=== PATIENT | female | born 1995 | race Caucasian/White ===

== ENCOUNTER 2024-12-14 12:50 | Emergency (ER) | payer OTHER, SELFPAY ==
[2024-12-14] VITALS (8 sets, daily range): BP systolic 100–111; BP diastolic 60–80; BMI 19.4
--- NOTE | 2024-12-14 13:13 | ED.GENMED ---
History of Present Illness
General
Chief Complaint: Post Operative Problem(s)
Time Seen by Provider: 12/14/24 13:06
History of Present Illness
History of Present Illness:
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 Last week
she underwent skin grafting as a follow-up to the initial surgery, had been doing well up until today when she had a cough and subsequently began hemorrhaging from the mouth. Per EMS the patient was tachycardic and hypotensive with severe blood
loss. On arrival the patient has no further bleeding, she is not on anticoagulants
Review of Systems
Review of Systems
Allergies reviewed?: Yes
All Other Systems: ROS reviewed and negative except as documented in HPI and ROS
Phy Exam
Physical Exam
Physical Exam:
GEN: Well appearing, NAD, WDWN
HEENT: Oral mucosa moist, no scleral icterus. Evidence of recent bleeding to the mouth, large clot in the right upper maxillary region, no evidence for active bleeding. Patient has severe trismus at baseline
Cardiac: Regular rate
Lung: No respiratory distress, no tachypnea
MSK: No gross deformity or injuries
Skin: Good color, no pallor or jaundice, no rashes
Neuro: AO x3, moves all extremities freely
Psych: Calm, cooperative
Course
Orders/Labs/Results
Orders:
Orders
12/14/24 13:11
Tranexamic Acid 1000 mg/100 ml [Tranexamic Acid] 1,000 mg in 100 ml IV ONCE
12/14/24 13:22
Type+Screen Urgent
Complete Blood Count/With Diff Urgent
Comprehensive Metabolic Panel Urgent
12/14/24 13:53
Ondansetron Injectable [Zofran] 4 mg .ROUTE .[facility]
12/14/24 13:54
Ondansetron Injectable [Zofran] 4 mg IV NOW STA
12/14/24 14:08
ABO2 Urgent
BBK Wristband Number:
Associate notified that ABO2 has been ordered: [id number]
Date: 12/14/24
Time: 13:37
Project Specialist ID: [id number]
12/14/24 14:09
Lorazepam [Ativan] 0.5 mg IV NOW STA
12/14/24 15:24
0.9% Sodium Chloride 1000 ml [Nss] 1,000 ml IV BOLUS
12/14/24 15:29
Hemoglobin Urgent
Abnormal Lab Results
12/14/24 12/14/24
13:22 15:29
WBC 12.0 H 10^3/uL
(4.8-10.8)
RBC 3.81 L 10^6/uL
(4.20-5.40)
Hgb 11.0 L g/dL 9.3 L g/dL
(12.0-16.0) (12.0-16.0)
Hct 32.9 L %
(37.0-47.0)
Absolute Neuts (auto) 7.0 H 10^3/uL
(1.4-6.5)
Absolute Lymphs (auto) 4.1 H 10^3/uL
(1.2-3.4)
Absolute Monos (auto) 0.7 H 10^3/uL
(0.1-0.6)
Potassium 3.4 L mmol/L
(3.5-5.1)
Glucose 156 H mg/dl
(70-99)
Total Bilirubin 1.4 H mg/dl
(0.2-1.3)
AST 67 H U/L
(14-36)
ALT 55 H U/L
(0-35)
Total Protein 5.9 L g/dl
(6.3-8.2)
12/14/24 15:29
12/14/24 13:22
Vital Signs
Initial and Last Documented VS:
Initial Vital Signs
BP
110/63
12/14/24 12:56
Last Documented Vital Signs
Temp Pulse Resp BP Pulse Ox
97.6 F 76 14 110/80 97
12/14/24 12:57 12/14/24 17:37 12/14/24 17:37 12/14/24 17:00 12/14/24 17:15
MDM/Problems Addressed
MDM/Problems Addressed:
Patient was given IV tranexamic acid due to reports of massive hemorrhage, bleeding was controlled in the ED. I did remove the bulk of the clot from the mouth and saw no evidence for active bleeding. Initial hemoglobin stable, repeat hemoglobin 2
hours later down trended to 9.3 however this is in part delusional due to 1 L of normal saline being administered. Patient was observed for several hours in the ED with no further bleeding, I did discuss the case with oral maxillofacial surgery at
[facility] and they feel it is reasonable for the patient be discharged home however the patient is quite insistent that she is not willing to go home unless she is seen by a maxillofacial specialist. Given this we discussed the
case with the ED attending at [place] and they have excepted her as an ED to ED transfer for OMFS evaluation, remained stable in the ED
*Critical Care Note
Total Time (30-74mins, 75-104mins- exclusive of procedures): Not Applicable
ED Attending Note
-
Portions of this chart may have been created with voice recognition software.� Occasional wrong word or��sound alike� substitutions may have occurred due to the inherent limitations of voice recognition software.
Discharge Plan
Departure
Patient Disposition: Acute Care Hospital
Date of Disposition: 12/14/24
Time of Disposition: 16:04
Discharge Problem:
Surgical wound hemorrhage after dental procedure
Referrals:
Janes Silvestre DDS [Family Provider] -
Hospital Transfer
Other hospital: [facility]
I certify that the patient requires transfer: Yes
Discussed case with accepting physician: [facility]
Reason for transfer: higher level of care
Interventions
Interventions:
*Risk Screen - Suicide Last Done: 12/14/24 12:57
*General Assessment Last Done: 12/14/24 12:57
*Neglect/Abuse Screening Last Done: 12/14/24 12:57
ED- Fall Risk Assessment Last Done: 12/14/24 13:40
*ED COVID-19 Vaccine History Last Done: 12/14/24 13:23
ED-Skin Assessment Last Done: 12/14/24 13:40
Discharge Date and Time
Print Language: ICELANDIC
[2024-12-14 13:34] LABS: % Basophils 0.2 % (0-2); % Eosinophils 1.8 % (0-6); % Immature Granulocytes 0.3 % (0-0.5); % Lymphocytes 33.9 % (20.5-51.1); % Monocytes 5.5 % (1.7-9.3); % Neutrophils 58.3 % (42.2-75.2); Absolute Eosinophils 0.2 10^3/uL (0-0.7); Absolute Lymphocytes 4.1 10^3/uL (1.2-3.4); Absolute Monocytes 0.7 10^3/uL (0.1-0.6); Hematocrit 32.9 % (37.0-47.0); Mean Corp Hgb Conc. 33.4 g/dL (33.0-37.0); Mean Corpuscular Hgb 28.9 pg (27.0-31.0); Mean Corpuscular Volume 86.4 fL (81.0-99.0); Mean Platelet Volume 9.5 fL (7.4-10.4); Nucleated Red Blood Cells % 0 %; Platelet Count 249 10^3/uL (130-400); Red Blood Cell Count 3.81 10^6/uL (4.20-5.40); Red Cell Dist. Width 13.1 % (11.5-14.5)
[2024-12-14] MEDS: TRANEXAMIC ACID 100 IV (13:35)
[2024-12-14 13:52] LABS: ALT (SGPT) 55 U/L (0-35); AST (SGOT) 67 U/L (14-36); Albumin 3.8 g/dl (3.5-5.0); Alkaline Phosphatase 68 U/L (38-126); Blood Urea Nitrogen 11 mg/dl (7-17); Calcium 8.7 mg/dl (8.4-10.2); Carbon Dioxide 22 mmol/L (22-30); Chloride 102 mmol/L (98-107); Estimated Creatinine Clearance 104 ml/min; Glucose 156 mg/dl (70-99); Potassium 3.4 mmol/L (3.5-5.1); Sodium 135 mmol/L (135-145); Total Bilirubin 1.4 mg/dl (0.2-1.3); Total Protein 5.9 g/dl (6.3-8.2); eGFR > 60.00
[2024-12-14] MEDS: ZOFRAN 4 MG IV (13:54)
[2024-12-14] MEDS: ATIVAN 0.5 MG IV (14:13)
[2024-12-14] MEDS: NSS 1000 IV (15:24)
[2024-12-14 15:49] LABS: Hemoglobin 9.3 g/dL (12.0-16.0)
== END 2024-12-14 19:12 | disposition short-term general hospital (02) ==
LOC: EMR 12:50
PROVIDERS: Physician Assistant; EMERGENCY PHYSICIAN Emergency Medicine; FAMILY PHYSICIAN Oral & Maxillofacial Surgery
DX: K91.841 Postprocedural hemorrhage of a digestive system organ or structure following other procedure (principal); Y83.8 Other surgical procedures as the cause of abnormal reaction of the patient, or of later complication, without mention of misadventure at the time of the procedure
CPT/HCPCS: 96374; 96375; 99284; 80053; 85018; 85025; 86850; 86900; 86901